=== PATIENT | female | born 1960 | race Caucasian/White ===

== ENCOUNTER → 2016-11-17 | Outpatient (CLI) | payer BC, OTHER ==
[2015-06-06 15:00] VITALS: BP 117/68
[~2016-11-17] MED LIST: ATOR10TA60 PO; CARV12.52 PO; FURO40TA4 PO; LISD40CA3 PO; LISI10TA2 PO; OMEP40CA5 PO; POTA20TA12 PO; RIZA10TA10 PO; SPIR25TA3 PO; VENL75CA6 PO
--- NOTE | 2016-11-17 09:41 | RAD ---
Rashi Chandler 11/17/2016 CT brain and maxillofacial: Indication: Headache and sinus congestion. Axial imaging through the brain and facial bones was performed without contrast. Sagittal and coronal reformations were also performed. CT brain: The ventricles and sulci are within normal limits. No sulcal effacement, midline shift shift or hemorrhage is detected. Cisterns are patent. Impression: No acute intracranial process is detected. CT maxillofacial: The frontal sinus is clear. The ethmoid air cells and sphenoid sinus are clear. Bilateral maxillary sinuses are clear. No mucosal thickening or air-fluid levels are seen. The mastoids are well aerated. The ostiomeatal units are patent bilaterally. Mild nasal septal deviation to the left is seen. Impression: No evidence of sinusitis.
== END | disposition home or self-care (01) ==
LOC: CT 07:44
PROVIDERS: ATTEND Physician Assistant Medical
DX: R51 Headache (principal); J34.2 Deviated nasal septum; R09.81 Nasal congestion
CPT/HCPCS: 70450; 70486

== ENCOUNTER → 2017-02-07 | Outpatient (CLI) | payer OTHER ==
[2015-06-06 15:00] VITALS: BP 117/68
[~2017-02-07] MED LIST changes: +IOHEXOL 240 MG/ML 50ML VIAL. ONE; +IOHEXOL 300 MG/ML 75 ML VIAL. IV ONE
[2017-02-07 08:10] LABS: CREATININE 0.8 mg/dL (0.6-1.0); GFR 74.2
--- NOTE | 2017-02-07 09:47 | RAD ---
CT abdomen and pelvis with contrast 02/07/2017 Clinical indication: Right lower quadrant abdominal pain for several months, nausea. Prior removal of right ovary and gallbladder. Comparison: CT abdomen and pelvis 08/12/2016 Technique: CT helical acquisition of the abdomen and pelvis was obtained following uneventful intravenous administration of 75 mL Omnipaque 300. Coronal and sagittal reformations were obtained. PQRS Compliance Statement: One or more of the following individualized dose reduction techniques were utilized for this examination: 1. Automated exposure control 2. Adjustment of the mA and/or kV according to patient size 3. Use of iterative reconstruction technique Findings: Abdomen and pelvis: Heart size and visualized lung bases are within normal limits. There is a sub-5 mm hypodensity and central hepatic segment 4A (series 2/image 10) stable and likely benign cyst or a hemangioma, though too small to definitively characterize. Prior cholecystectomy. No intra or extra hepatic biliary ductal dilatation. Spleen, adrenal glands and pancreas are within normal limits. There is a stable 4 mm nonobstructive calculus in the superior pole the left kidney. There is a stable 11 mm cyst in the interpolar right kidney. There are few stable subcentimeter hypodensities in the left kidney which are too small to definitively characterize. No collecting system dilatation. Abdominal aorta is normal in caliber with mild aortoiliac calcified atheromatous disease. Major portal, splenic and visualized upper spin mesenteric veins are widely patent. There is a small hiatal hernia. Small and large bowel loops are normal in caliber without obstruction. No mesenteric or retroperitoneal lymphadenopathy. No abdominal free fluid. Mildly distended and unopacified urinary bladder unremarkable. Prior hysterectomy the vaginal cuff within normal limits. No pelvic free fluid. Prior right oophorectomy. Left ovary is present but incompletely characterized by CT. No iliac or inguinal lymphadenopathy. There is diffuse bony demineralization with known suspicious lytic or blastic osseous lesions. Impression: 1. No CT radiology for reported right lower quadrant abdominal pain. 2. Diffuse bony demineralization.
== END | disposition home or self-care (01) ==
LOC: CT 07:12
PROVIDERS: ATTEND Internal Medicine Gastroenterology
DX: R10.31 Right lower quadrant pain (principal); M81.0 Age-related osteoporosis without current pathological fracture; I10 Essential (primary) hypertension; I50.9 Heart failure, unspecified; I48.91 Unspecified atrial fibrillation; Z95.0 Presence of cardiac pacemaker
CPT/HCPCS: 36415; 74177; 82565; Q9966; Q9967

== ENCOUNTER → 2017-03-21 | Outpatient (CLI) | payer OTHER ==
[2015-06-06 15:00] VITALS: BP 117/68
[~2017-03-21] MED LIST changes: -IOHEXOL 240 MG/ML 50ML VIAL. ONE; -IOHEXOL 300 MG/ML 75 ML VIAL. IV ONE
--- NOTE | 2017-03-21 10:46 | CARD ---
APPROVED REPORT EXAM: Two-dimensional and M-mode echocardiogram with Doppler and color Doppler. Other Information Quality : GoodHR: 75bpm Rhythm : NSR INDICATION Cardiomyopathy RISK FACTORS Hypertension Hyperlipidemia 2D DIMENSIONS RVDd3.1 (2.9-3.5cm)Left Atrium(2D)2.8 (1.6-4.0cm) IVSd0.7 (0.7-1.1cm)Aortic Root(2D)2.9 (2.0-3.7cm) LVDd4.1 (3.9-5.9cm)LVOT Diameter2.0 (1.8-2.4cm) PWd0.7 (0.7-1.1cm)LVDs3.2 (2.5-4.0cm) FS (%) 21.9 %SV34.1 ml Aortic Valve AoV Peak Luiz.110.1cm/sAoV VTI22.3cm AO Peak GR.4.8mmHgLVOT Peak Luiz.86.2cm/s LVOT VTI 15.44cmAO Mean GR.3mmHg SENDY (VMAX)2.14or1AAE (VTI)2.20cm2 Mitral Valve MV E Avfkyqus09.0cm/sMV E Peak Gr.2mmHg MV DECEL [id number] A Wwwpbeud83.0cm/s MV E Mean Gr.1mmHgE/A Ratio0.8 MV A Subbmjpl406vz Pulmonary Valve PV Peak Olbaskeu55.9cm/sPV Peak Grad.3mmHg Tricuspid Valve TR P. Kgyahpwe012jd/sTR Peak Gr.25mmHg Pulmonary Vein S1 Omaccgyf82.9cm/sD2 Bphcosjz32.6cm/s LEFT VENTRICLE The left ventricle is normal size. There is normal left ventricular wall thickness. Left ventricle sy stolic function is mildly impaired. The Ejection Fraction is 45-50%. There is mild global hypokinesis of the left ventricle. Transmitral Doppler flow pattern is Grade I-abnormal relaxation pattern. No l eft ventricle thrombus noted on this study. RIGHT VENTRICLE The right ventricle is normal size. There is normal right ventricular wall thickness. The right ventr icular systolic function is normal. ATRIA The left atrium size is normal. The right atrium size is normal. The interatrial septum is intact wit h no evidence for an atrial septal defect or patent foramen ovale as noted on 2-D or Doppler imaging. AORTIC VALVE The aortic valve is mildly thickened. The aortic valve is trileaflet. Doppler and Color Flow revealed no significant aortic regurgitation. There is no significant aortic valvular stenosis. MITRAL VALVE The mitral valve leaflets are mildly thickened. There is no evidence of mitral valve prolapse. There is no mitral valve stenosis. Doppler and Color Flow revealed no mitral valve regurgitation noted. TRICUSPID VALVE Doppler and Color Flow revealed mild tricuspid regurgitation. The pulmonary artery systolic pressure is estimated at 28 mmHg. PULMONIC VALVE The pulmonic valve is not well visualized but appears to open adequately.Doppler and Color Flow revea led no pulmonic valvular regurgitation. There is no pulmonic valvular stenosis by spectral Doppler. GREAT VESSELS The aortic root is normal in size. The ascending aorta is normal in size. The pulmonary artery is nor mal. The IVC is normal in size and collapses >50% with inspiration. PERICARDIAL EFFUSION There is no evidence of significant pericardial effusion. Critical Notification Critical Value: No <Conclusion> Left ventricle systolic function is mildly impaired. The Ejection Fraction is 45-50%. Transmitral Doppler flow pattern is Grade I-abnormal relaxation pattern. Mild tricuspid regurgitation. The pulmonary artery systolic pressure is estimated at 28 mmHg. There is no evidence of significant pericardial effusion.
== END | disposition home or self-care (01) ==
LOC: ECHO 07:39
PROVIDERS: ATTEND Internal Medicine Cardiovascular Disease
DX: I07.1 Rheumatic tricuspid insufficiency (principal); I42.9 Cardiomyopathy, unspecified; I10 Essential (primary) hypertension; E78.5 Hyperlipidemia, unspecified
CPT/HCPCS: 93306

== ENCOUNTER → 2018-08-22 | Outpatient (CLI) | payer OTHER, BC ==
[2015-06-06 15:00] VITALS: BP 117/68
[~2018-08-22] MED LIST changes: -CARV12.52 PO; +CARV12.547 PO; +CONTRAST GIVEN MC PRN; +IOHEXOL 240 MG/ML 50ML VIAL. ONE; +IOHEXOL 300 MG/ML 75 ML VIAL. IV ONE; -SPIR25TA3 PO; +SPIR25TA5 PO
--- NOTE | 2018-08-23 10:41 | RAD ---
CT ABD PELV W/ORAL IV CONTRAST Indication: LOWER ABDOMINAL PAIN FOR A FEW MONTHS. ORAL AND 75MLS OMNI 300 IV CONTRAST Exposure: One or more of the following individualized dose reduction techniques were utilized for this examination: 1. Automated exposure control 2. Adjustment of the mA and/or kV according to patient size 3. Use of iterative reconstruction technique. Comparison: February 07, 2017. Contrast: Intravenous and oral contrast was given. Lung bases are clear apart from minimal atelectasis. Liver and spleen appear unremarkable. Pancreas appears unremarkable. No evidence of an adrenal mass. Symmetric enhancement of both kidneys. Hypodense lesion lower pole right kidney unchanged, 6 Hounsfield units, compatible with a cyst. Additional smaller hypodense lesions of both kidneys appears stable as well, too small to characterize but likely cysts. Nonobstructive left upper pole renal calculus is again seen. No evidence of hydronephrosis. Gallbladder surgically absent. The aorta is mildly calcified, without evidence of an aneurysm. No significant enlargement of lymph nodes. Small hiatal hernia. No evidence of bowel obstruction. Moderate retained stool in the colon. Somewhat similar appearance was seen on prior study. There is no evidence of pericolonic inflammatory stranding. The appendix appears normal. No evidence of ascites or pneumoperitoneum. No evidence of pelvic mass. Urinary bladder appears unremarkable. Left convexity lumbar scoliosis. Osteolytic lesion within L3, likely a benign hemangioma. No aggressive bone destruction. There is a sclerotic lesion within the left trochanteric region of the proximal femur unchanged and likely benign. IMPRESSION: 1. Moderate retained stool in the colon, correlate for constipation. 2. Stable renal lesions, most likely cysts. 3. Stable nonobstructive left upper pole renal calculus. 4. No acute findings in the abdomen or pelvis. Electronically signed by: Kirk Ferreira MD (08/23/2018 10:38 AM) [id number]
== END | disposition home or self-care (01) ==
LOC: CT 07:53
PROVIDERS: ATTEND Physician Assistant Medical
DX: K59.09 Other constipation (principal); N20.0 Calculus of kidney; N28.89 Other specified disorders of kidney and ureter; J98.11 Atelectasis; M41.86 Other forms of scoliosis, lumbar region; K44.9 Diaphragmatic hernia without obstruction or gangrene; I70.0 Atherosclerosis of aorta; M89.58 Osteolysis, other site
CPT/HCPCS: 74177; Q9967

== ENCOUNTER → 2018-09-11 | Outpatient (CLI) | payer OTHER, BC ==
[2015-06-06 15:00] VITALS: BP 117/68
[~2018-09-11] MED LIST changes: -CONTRAST GIVEN MC PRN; -IOHEXOL 240 MG/ML 50ML VIAL. ONE; -IOHEXOL 300 MG/ML 75 ML VIAL. IV ONE
--- NOTE | 2018-09-11 09:45 | CARD ---
MR#: [id number] Date of Study: 09/11/2018 Ordering Physician: JAMES MONTEMAYOR, Referring Physician: JAMES MONTEMAYOR, Tech: Rajni Carter APPROVED REPORT EXAM: Two-dimensional and M-mode echocardiogram with Doppler and color Doppler. Other Information Quality : AverageHR: 85bpm INDICATION Cardiomyopathy RISK FACTORS Hypertension Hyperlipidemia 2D DIMENSIONS RVDd2.9 (2.9-3.5cm)Left Atrium(2D)3.1 (1.6-4.0cm) IVSd1.3 (0.7-1.1cm)Aortic Root(2D)2.8 (2.0-3.7cm) LVDd4.3 (3.9-5.9cm)LVOT Diameter2.0 (1.8-2.4cm) PWd1.2 (0.7-1.1cm)LVDs2.4 (2.5-4.0cm) FS (%) 45.0 %SV64.7 ml Aortic Valve AoV Peak Luiz.112.2cm/sAoV VTI22.5cm AO Peak GR.5.0mmHgLVOT Peak Luiz.98.2cm/s LVOT VTI 22.64cmAO Mean GR.3mmHg SENDY (VMAX)2.24tu4SQR (VTI)3.20cm2 Mitral Valve MV E Oqfevafh90.1cm/sMV DECEL VADY333co MV A Iiohicqg24.4cm/sE/A Ratio0.6 Pulmonary Valve PV Peak Crjftuyj90.6cm/sPV Peak Grad.4mmHg Tricuspid Valve TR P. Guelwqpn362cj/sRAP GWBKFSBJ8leYw TR Peak Gr.36piSsOGNE28byRj Pulmonary Vein S1 Dgvzwuno86.6cm/sD2 Tikvhzmq66.6cm/s LEFT VENTRICLE The left ventricle is normal size. There is moderate concentric left ventricular hypertrophy. The lef t ventricular systolic function is normal. The ejection fraction is 55%. There is normal LV segmental wall motion. Transmitral Doppler flow pattern is Grade I-abnormal relaxation pattern. RIGHT VENTRICLE The right ventricle is normal size. There is normal right ventricular wall thickness. The right ventr icular systolic function is normal. ATRIA The left atrium size is normal. The right atrium size is normal. The interatrial septum is intact wit h no evidence for an atrial septal defect or patent foramen ovale as noted on 2-D or Doppler imaging. AORTIC VALVE The aortic valve is normal in structure and function. Doppler and Color Flow revealed no significant aortic regurgitation. There is no significant aortic valvular stenosis. MITRAL VALVE The mitral valve is normal in structure and function. There is no evidence of mitral valve prolapse. There is no mitral valve stenosis. Doppler and Color Flow revealed no mitral valve regurgitation note d. TRICUSPID VALVE The tricuspid valve is normal in structure and function. Doppler and Color Flow revealed trace tricus pid regurgitation with an estimated PAP of 26 mmHg. There is no tricuspid valve stenosis. PULMONIC VALVE The pulmonic valve is not well visualized. Doppler and Color Flow revealed no pulmonic valvular regur gitation. GREAT VESSELS The aortic root is normal in size. The IVC is normal in size and collapses >50% with inspiration. PERICARDIAL EFFUSION There is no evidence of significant pericardial effusion. Critical Notification Critical Value: No <Conclusion> The left ventricular systolic function is normal. The ejection fraction is 55%. There is normal LV segmental wall motion. Transmitral Doppler flow pattern is Grade I-abnormal relaxation pattern. Trace tricuspid regurgitation with an estimated PAP of 26 mmHg. There is no evidence of significant pericardial effusion. Signed by : Daniel Preston, Electronically Approved : 09/11/2018 09:45:07
== END | disposition home or self-care (01) ==
LOC: ECHO 07:52
PROVIDERS: ATTEND Internal Medicine Cardiovascular Disease
DX: I11.9 Hypertensive heart disease without heart failure (principal); E78.5 Hyperlipidemia, unspecified; R00.8 Other abnormalities of heart beat
CPT/HCPCS: 93306

== ENCOUNTER → 2018-12-08 | Outpatient (CLI) | payer OTHER, BC ==
[2015-06-06 15:00] VITALS: BP 117/68
--- NOTE | 2018-12-08 09:49 | RAD ---
Examination: 3 views of the thoracic spine and 5 views of the lumbar spine HISTORY: History of back pain COMPARISON: None available FINDINGS: The thoracic and lumbar vertebral body heights are maintained. Mild intervertebral disc height loss identified throughout the thoracic and lumbar spine likely degeneration. Osseous demineralization limits evaluation. Mild lumbar levoscoliosis IMPRESSION: Mild degenerative changes thoracic and lumbar spine. If pain persists MRI can be considered. Electronically signed by: Zachary Valencia MD (12/08/2018 9:46 AM) [facility]
== END | disposition home or self-care (01) ==
LOC: DXRAD 08:39
PROVIDERS: ATTEND Physician Assistant
DX: M47.815 Spondylosis without myelopathy or radiculopathy, thoracolumbar region (principal); M41.86 Other forms of scoliosis, lumbar region
CPT/HCPCS: 72072; 72100

== ENCOUNTER → 2019-01-26 | Outpatient (CLI) | payer OTHER, BC ==
[2015-06-06 15:00] VITALS: BP 117/68
--- NOTE | 2019-01-26 09:12 | RAD ---
PROCEDURE: CHEST PA LATERAL CLINICAL INDICATION: Cough. COMPARISON: None FINDINGS: No pneumothorax identified. Cardiac and mediastinal contours unremarkable. No pulmonary consolidation or acute airspace disease. No acute osseous abnormalities identified. IMPRESSION: No pulmonary consolidation or acute airspace disease. Electronically signed by: Pete Dacosta DO (01/26/2019 9:09 AM) [facility]
== END | disposition home or self-care (01) ==
LOC: RAD 08:29
PROVIDERS: ATTEND Physician Assistant
DX: R05 Cough (principal)
CPT/HCPCS: 71046

== ENCOUNTER → 2019-09-12 | Outpatient (CLI) | payer OTHER, BC ==
[2015-06-06 15:00] VITALS: BP 117/68
[~2019-09-12] MED LIST changes: +OMEP40CA45 PO; -OMEP40CA5 PO; -RIZA10TA10 PO; +RIZA10TA91 PO
--- NOTE | 2019-09-12 15:50 | RAD ---
Bone densitometry study: Date: 09/12/2019. Indication: Menopause. Procedure: DEXA study. Findings: The bone mineral density from L1 through L4 is 0.830 grams/cm squared with T-score -2.9. The bone mineral density in the left hip involving the neck of the left femur is 0.613 grams per cm squared with a T-score of -2.8. 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 Consider follow-up in one year to assess treatment response following an appropriate course of therapy. Electronically signed by: Tam Caban MD (09/12/2019 3:47 PM) [id number]
--- NOTE | 2019-09-16 17:30 | RAD ---
BILATERAL SCREENING MAMMOGRAM, 3-D History: Routine screening. Comparison: 02/27/2013 mammographic exam. Technique: MLO and CC digital tomosynthesis (3D) images obtained. Radiologist reviewed these images on dedicated workstation. Findings: Breast Tissue Density B : There are scattered areas of fibroglandular density. A small knee mass involves the left outer breast approximately 4 cm from the nipple at approximately the 3:00 region. This small mass measures 0.35 cm diameter and is well-circumscribed. No suspicious calcifications or distortion.. IMPRESSION: Ultrasound evaluation left breast mass at the outer aspect is recommended. BI-RADS Category 0: Incomplete: Need additional imaging evaluation. The images were reviewed with computer-aided detection. Patient information is entered into reminder system with a target due date for the next screening mammogram. Mammography is the most sensitive method for finding small breast cancers, but it does not detect them all and is not a substitute for careful clinical examination. A negative mammogram does not negate a clinically suspicious finding and should not result in delay in biopsying a clinically suspicious abnormality. "Our facility is accredited by the [employer] Mammography Program." Electronically signed by: Jaguar Mujica MD (09/16/2019 5:27 PM) [id number]
== END | disposition home or self-care (01) ==
LOC: DXRAD 10:39
PROVIDERS: ATTEND Physician Assistant Medical
DX: Z12.31 Encounter for screening mammogram for malignant neoplasm of breast (principal); M81.0 Age-related osteoporosis without current pathological fracture; Z78.0 Asymptomatic menopausal state
CPT/HCPCS: 77063; 77067; 77080

== ENCOUNTER → 2019-09-23 | Outpatient (CLI) | payer OTHER, BC ==
[2015-06-06 15:00] VITALS: BP 117/68
--- NOTE | 2019-09-23 13:21 | RAD ---
Examination: 1. Limited left breast ultrasound. INDICATION: Screening recall left breast mass. COMPARISON: 09/12/2019 and 02/27/2013 screening mammograms. TECHNIQUE: Grayscale and color Doppler imaging of the left breast targeted to the anterior lateral left breast was performed. FINDINGS: In the upper outer quadrant left breast is identified a 4 mm cyst at the 2:00 position 4 cm from the nipple that correlates in size shape and position with the mammographic mass recalled from screening. There are no suspicious findings on sonographic survey of the lateral anterior left breast. IMPRESSION: Benign findings on targeted left breast ultrasound. No evidence of malignancy. Recommend patient return to routine screening next doing one year. BI-RADS Category 2 Benign Patient entered into reminder system with target due date for next mammogram. BI-RADS 2 -- benign findings
== END ==
LOC: US 12:49
PROVIDERS: ATTEND Physician Assistant Medical
DX: N60.02 Solitary cyst of left breast (principal); N63.22 Unspecified lump in the left breast, upper inner quadrant
CPT/HCPCS: 76641

== ENCOUNTER → 2020-11-17 | Outpatient (CLI) | payer OTHER, BC ==
[2015-06-06 15:00] VITALS: BP 117/68
[~2020-11-17] MED LIST changes: +LISI10TA16 PO; -LISI10TA2 PO
--- NOTE | 2020-11-17 15:10 | RAD ---
EXAM: Bilateral knees, standing view; bilateral knees, lateral view. HISTORY: Pain COMPARISON: None. FINDINGS: A frontal standing view and lateral views of both knees are obtained. There is no fracture, dislocation or subluxation. There is no significant joint effusion. There is no suspicious lytic or sclerotic osseous lesion. There are incidental growth arrest lines within the distal femurs and proxi mal tibias. IMPRESSION: No acute osseous finding. Electronically signed by: Katy Almonte MD (11/17/2020 3:08 PM) [facility]
== END ==
LOC: PMG 14:05
PROVIDERS: ATTEND Physician Assistant Medical
DX: M25.561 Pain in right knee (principal); M25.562 Pain in left knee
CPT/HCPCS: 73560